=== PATIENT | female | born 1955 | race Caucasian/White ===

== ENCOUNTER 2025-06-30 20:33 | Emergency (ER) | payer MEDICARE, OTHER ==
[~2025-06-30] VITALS: Ht 162.6 cm; Wt 72.6 kg
[2025-06-30 22:05] LABS: PLATELET COUNT (AUTO) 157 K/uL (150-450); RED BLOOD CELL COUNT(AUTO) 3.99 MIL/uL (4.0-5.2); RED CELL DISTRIBUTION WIDTH 13.6 % (11.5-15.0); WHITE BLOOD COUNT (AUTO) 6.8 K/uL (4.3-11.0)
[2025-06-30 22:18] LABS: CALCIUM, SERUM 9.2 mg/dL (8.5-10.1); CREATININE 0.8 mg/dL (0.6-1.3); SODIUM SERUM 138 mmol/L (136-145); UREA NITROGEN, BLOOD 19 mg/dL (7-18)
[2025-06-30] MEDS ORDERED: ACETAMINOPHEN 325 MG TABLET PO PRN (23:00)
[2025-06-30] MEDS ORDERED: MAG HYDROX/AL HYDROX/SIMETH 30 ML UDC PO PRN (23:00)
[2025-06-30] MEDS ORDERED: Z GUARD REMEDY 4 OZ OINT TP PRN (23:00)
[2025-06-30] MEDS ORDERED: MAGNESIUM HYDROXIDE 30 ML UDC PO PRN (23:00)
[2025-06-30] MEDS ORDERED: ZOLPIDEM TARTRATE 5 MG TABLET PO PRN (23:00)
[2025-06-30] MEDS ORDERED: ONDANSETRON HCL/PF 4 MG/2 ML VIAL IVP PRN (23:00)
[2025-06-30] MEDS ORDERED: ENOXAPARIN SODIUM 40 MG/0.4 ML DISP.SYRIN SQ ONE (23:36)
[2025-06-30] MEDS ORDERED: ASPIRIN 325 MG TABLET ONE (23:36)
[2025-06-30] MEDS: ENOXAPARIN SODIUM 40 MG/0.4 ML DISP.SYRIN SQ SCH (23:42)
[2025-06-30] MEDS: ASPIRIN 81 MG TAB.CHEW PO ONE (23:43)
[2025-07-01 00:46] VITALS: BP 141/70; TEMP 98.4; O2SAT 99
[2025-07-01] MEDS ORDERED: PANTOPRAZOLE 40 MG TABLET.DR PO SCH (07:30)
[2025-07-01] MEDS ORDERED: ASPIRIN 81 MG TAB.CHEW PO SCH (09:00)
== END 2025-07-01 00:47 | disposition left against medical advice (07) ==
LOC: ER 20:41
DX: I21.4 Non-ST elevation (NSTEMI) myocardial infarction (principal); I10 Essential (primary) hypertension; Z79.82 Long term (current) use of aspirin; Z20.822 Contact with and (suspected) exposure to COVID-19
CPT/HCPCS: 99285; 71045; 87426; 96372; 93005; 85025; 80048; 36415; 84443; 84484 ×2; J1650